=== PATIENT | female | born 1990 | race Caucasian/White ===

== ENCOUNTER → 2020-12-29 09:55 | Day surgery (SDC) | payer MEDICAID, SELFPAY ==
[2020-12-29 11:52] VITALS: BP 115/52; PULSE 74; RESP 18; TEMP 36.6; O2SAT 97; BMI 27.4
[2020-12-29 12:28] VITALS: BP 115/52; PULSE 74; RESP 18; TEMP 36.6; O2SAT 97
== END ==
LOC: GILAB 09:57
PROVIDERS: PCP Family Medicine; Visit Provider Family Medicine
DX: O26.899 Other specified pregnancy related conditions, unspecified trimester (principal); Z67.91 Unspecified blood type, Rh negative; Z3A.00 Weeks of gestation of pregnancy not specified
CPT/HCPCS: 36430; 86850; 86900; 90384; 96372